=== PATIENT | male | born 1970 | race African-American/Black ===

== ENCOUNTER 2017-11-18 16:56 | Observation (INO) ==
[2017-11-18 17:58] LABS: Basophils % 0.5 % (0.0-0.8); Eosinophils # 0.3 10*3/uL (0.0-0.87); Eosinophils % 3.4 % (0.00-10.9); Hematocrit 36.5 VOL% (42.0-52.0); Hemoglobin 11.8 GM/DL (14.0-18.0); Immature Granulocytes % 0.3 %; Immature Granulocytes Absolute 0.02 #; Lymphocytes # 1.9 10*3/uL (1.4-4.0); Lymphocytes % 24.4 % (21.2-54.2); Mean Corpuscular HGB Conc 32.3 GM/DL (32-36); Mean Corpuscular Hemoglobin 28 PG (27-34); Mean Corpuscular Volume 87.3 FL (87-102); Mean Platelet Volume 10.7 FL (9.6-12.0); Monocytes # 1.1 10*3/uL (0.11-0.8); Monocytes % 13.9 % (1.7-12.7); Neutrophils # 4.5 10*3/uL (1.4-7.4); Neutrophils % 57.5 % (38.7-73.9); Platelet Count 342 T/CUMM (130-400); Red Blood Count 4.18 MC/CUMM (3.8-5.5); Red Cell Distribution Width 15.2 % (9.3-17.3); White Blood Count 7.8 T/CUMM (4-12)
[2017-11-18 18:02] LABS: INR 0.9
[2017-11-18 18:17] LABS: Alanine Aminotransferase 24 U/L (16-61); Albumin 3.3 G/DL (3.4-5.0); Alkaline Phosphatase 106 U/L (45-117); Aspartate Amino Transferase 19 U/L (0-37); Bilirubin,Total < 0.39 MG/DL (0.2-1.0); Blood Urea Nitrogen 15 MG/DL (7-18); Glucose 97 MG/DL (74-106); Osmolality,Calculated 281.3 MOS/KG (273-304); Potassium 3.9 MMOL/L (3.5-5.1); Sodium 141 MMOL/L (136-145); Total Protein 7.9 G/DL (6.4-8.3); Troponin I Only < 0.015 NG/ML (0.00-0.045)
[2017-11-18] MEDS ORDERED: MAGNESIUM SULF RIDER 2 GM in PREMIX 1 EACH IV STA (18:19)
[2017-11-18] MEDS ORDERED: MORPHINE 4 MG/1 ML VIAL IV STA (18:19)
[2017-11-18] MEDS ORDERED: NITROGLYCERIN 2% OINT 1 INCH/GM PACK TOP STA (18:19)
[2017-11-18] MEDS ORDERED: ONDANSETRON 4 MG/2 ML VIAL IV STA (18:19)
[2017-11-18] MEDS ORDERED: ALUM/MAG/SIMETH/LIDO VISC 1:1 30 ML BOTTLE PO STA (18:19)
[2017-11-18] MEDS ORDERED: ASPIRIN 325 MG TABLET PO STA (18:19)
[2017-11-18] MEDS ORDERED: MAGNESIUM SULF RIDER 4 GM in PREMIX 1 EACH IV PRN (18:44)
[2017-11-18] MEDS ORDERED: INSULIN REGULAR 100 UNIT/ML SUBCUT ONE (18:44)
[2017-11-18] MEDS ORDERED: POTASSIUM CHLORIDE 20 MEQ TABLET PO PRN ×2 (18:44)
[2017-11-18] MEDS ORDERED: MAGNESIUM SULF RIDER 2 GM in PREMIX 1 EACH IV PRN (18:44)
[2017-11-18] MEDS ORDERED: ACETAMINOPHEN 325 MG TABLET PO PRN (18:44)
[2017-11-18] MEDS ORDERED: ONDANSETRON 4 MG/2 ML VIAL IV PRN (18:44)
[2017-11-18] MEDS ORDERED: amLODIPine 5 MG TABLET PO SCH (19:00)
[2017-11-18] MEDS ORDERED: ENOXAPARIN 40 MG/0.4 ML SYRINGE SUBCUT SCH (21:00)
[2017-11-18] MEDS ORDERED: SIMVASTATIN 20 MG TABLET PO SCH (21:00)
[2017-11-18] MEDS ORDERED: CITALOPRAM 20 MG TABLET PO SCH (21:00)
[2017-11-18] MEDS ORDERED: traZODone 50 MG TABLET PO SCH (21:00)
[2017-11-18] MEDS: PANTOPRAZOLE 40 MG TABLET PO SCH (21:21)
[2017-11-18] MEDS: metFORMIN 500 MG TABLET PO SCH (21:22)
[2017-11-18] MEDS: SODIUM CHLORIDE 0.45% 1,000 ML IV SCH (21:22)
[2017-11-19 01:44] LABS: Basophils % 0.4 % (0.0-0.8); Eosinophils # 0.3 10*3/uL (0.0-0.87); Eosinophils % 4.4 % (0.00-10.9); Hematocrit 34.8 VOL% (42.0-52.0); Hemoglobin 11.3 GM/DL (14.0-18.0); Immature Granulocytes % 0.7 %; Immature Granulocytes Absolute 0.05 #; Lymphocytes # 2.3 10*3/uL (1.4-4.0); Lymphocytes % 30.4 % (21.2-54.2); Mean Corpuscular HGB Conc 32.5 GM/DL (32-36); Mean Corpuscular Hemoglobin 29 PG (27-34); Mean Corpuscular Volume 88.5 FL (87-102); Monocytes # 1.1 10*3/uL (0.11-0.8); Monocytes % 14.8 % (1.7-12.7); Neutrophils # 3.7 10*3/uL (1.4-7.4); Neutrophils % 49.3 % (38.7-73.9); Platelet Count 306 T/CUMM (130-400); Red Blood Count 3.93 MC/CUMM (3.8-5.5); Red Cell Distribution Width 15.1 % (9.3-17.3); White Blood Count 7.4 T/CUMM (4-12)
[2017-11-19 01:46] LABS: Risk Ratio 2.93; VLDL CHOLESTEROL 19.8 MG/DL
[2017-11-19 01:53] LABS: Calcium 8.2 MG/DL (8.5-10.1); Osmolality,Calculated 276.5 MOS/KG (273-304); Potassium 3.7 MMOL/L (3.5-5.1); Thyroid Stimulating Hormone 1.1 uIU/ml (0.358-3.74)
[2017-11-19] MEDS: NITROGLYCERIN 2% OINT 1 INCH/GM PACK TOP SCH ×3 (05:15→11:25)
[2017-11-19] MEDS: SODIUM CHLORIDE 0.45% 1,000 ML IV SCH (06:50)
[2017-11-19] MEDS ORDERED: GLIMEPIRIDE 2 MG TABLET PO SCH (09:00)
[2017-11-19] MEDS ORDERED: ASPIRIN EC 325 MG TABLET PO SCH (09:00)
[2017-11-19] MEDS ORDERED: SIMVASTATIN 20 MG TABLET PO SCH (09:53)
[2017-11-19 11:47] VITALS: BP 128/91
[2017-11-19] MEDS: PANTOPRAZOLE 40 MG TABLET PO SCH (12:12)
[2017-11-19] MEDS: metFORMIN 500 MG TABLET PO SCH (12:12)
== END 2017-11-19 12:57 | disposition home or self-care (01) ==
LOC: N.EDINP 16:56 → N.ED 16:56 → N.TELES 19:37
PROVIDERS: ADMIT Internal Medicine; ATTEND Internal Medicine

== ENCOUNTER 2019-11-12 17:35 | Observation (INO) ==
[2019-11-12] MEDS ORDERED: ASPIRIN 325 MG TABLET PO STA (18:16)
[2019-11-12 18:31] LABS: PT Patient Result 10.3 SECS (9.8-11.9)
[2019-11-12 18:41] LABS: Basophils % 0.5 % (0.0-0.8); Eosinophils # 0.1 10*3/uL (0.0-0.87); Eosinophils % 1.1 % (0.00-10.9); Hematocrit 27.4 VOL% (42.0-52.0); Immature Granulocytes % 0.5 %; Immature Granulocytes Absolute 0.03 #; Lymphocytes # 1.2 10*3/uL (1.4-4.0); Lymphocytes % 17.7 % (21.2-54.2); Mean Corpuscular HGB Conc 29.2 GM/DL (32-36); Mean Corpuscular Volume 78.5 FL (87-102); Mean Platelet Volume 9.1 FL (9.6-12.0); Monocytes % 16.4 % (1.7-12.7); Neutrophils % 63.8 % (38.7-73.9); Platelet Count 374 T/CUMM (130-400); Red Blood Count 3.49 MC/CUMM (3.8-5.5); Red Cell Distribution Width 18.4 % (9.3-17.3); White Blood Count 6.7 T/CUMM (4-12)
[2019-11-12 18:48] LABS: Anisocytosis 1+; Hypochromasia 1+; Lymphocytes 20 % (20-55); Segmented Neutrophils 65 % (50-85); Total Cells Counted 100
[2019-11-12 18:49] LABS: Platelet Estimate Adequate; Polychromasia 1+
[2019-11-12 19:09] LABS: Alanine Aminotransferase 25 U/L (16-61); Albumin 3.4 G/DL (3.4-5.0); Alkaline Phosphatase 101 U/L (45-117); Aspartate Amino Transferase 28 U/L (0-37); Bilirubin,Total < 0.39 MG/DL (0.2-1.0); Blood Urea Nitrogen 15 MG/DL (7-18); Calcium 8.1 MG/DL (8.5-10.1); Estimated Glom Filtration Rate 156 ML/MIN; Glucose 144 MG/DL (74-106); Osmolality,Calculated 276.8 MOS/KG (273-304); Total Protein 7.7 G/DL (6.4-8.3)
[2019-11-12] MEDS ORDERED: ONDANSETRON 4 MG/2 ML VIAL IV ONE (19:19)
[2019-11-12] MEDS ORDERED: NITROGLYCERIN SL 0.4 MG TABLET SL STA (19:19)
[2019-11-12] MEDS ORDERED: MORPHINE 4 MG/1 ML VIAL IV STA (19:19)
[2019-11-12] MEDS ORDERED: MORPHINE 4 MG/1 ML VIAL IV PRN (22:15)
[2019-11-12] MEDS ORDERED: MAGNESIUM SULF RIDER 4 GM in PREMIX 1 EACH IV PRN (22:15)
[2019-11-12] MEDS ORDERED: DOCUSATE SODIUM 100 MG CAPSULE PO PRN (22:15)
[2019-11-12] MEDS ORDERED: NITROGLYCERIN SL 0.4 MG TABLET SL PRN (22:15)
[2019-11-12] MEDS ORDERED: MAGNESIUM SULF RIDER 2 GM in PREMIX 1 EACH IV PRN (22:15)
[2019-11-12] MEDS ORDERED: SODIUM CHLORIDE 0.9% 1,000 ML IV PRN (22:15)
[2019-11-12] MEDS ORDERED: GLUCAGON 1 MG VIAL IM PRN (22:15)
[2019-11-12] MEDS ORDERED: ONDANSETRON 4 MG/2 ML VIAL IV PRN (22:15)
[2019-11-12] MEDS ORDERED: hydrALAZINE 20 MG/1 ML VIAL IV PRN (22:15)
[2019-11-12] MEDS ORDERED: DEXTROSE 10% 250 ML BAG IV PRN (22:15)
[2019-11-13] MEDS: SIMVASTATIN 40 MG TABLET PO SCH ×2 (00:10→21:42)
[2019-11-13] MEDS: CITALOPRAM 20 MG TABLET PO SCH ×2 (00:10→21:42)
[2019-11-13] MEDS: ENOXAPARIN 40 MG/0.4 ML SYRINGE SUBCUT SCH ×2 (00:10→21:43)
[2019-11-13] MEDS: traZODone 50 MG TABLET PO SCH ×2 (00:10→21:43)
[2019-11-13 02:00] LABS: Basophils % 0.4 % (0.0-0.8); Eosinophils # 0.1 10*3/uL (0.0-0.87); Eosinophils % 1.1 % (0.00-10.9); Hematocrit 21.6 VOL% (42.0-52.0); Immature Granulocytes % 0.3 %; Immature Granulocytes Absolute 0.02 #; Lymphocytes # 1.9 10*3/uL (1.4-4.0); Lymphocytes % 25.3 % (21.2-54.2); Mean Corpuscular HGB Conc 27.8 GM/DL (32-36); Mean Corpuscular Volume 80.6 FL (87-102); Mean Platelet Volume 9.1 FL (9.6-12.0); Monocytes % 16.5 % (1.7-12.7); Neutrophils % 56.4 % (38.7-73.9); Platelet Count 448 T/CUMM (130-400); Red Blood Count 2.68 MC/CUMM (3.8-5.5); Red Cell Distribution Width 18.1 % (9.3-17.3); White Blood Count 7.5 T/CUMM (4-12)
[2019-11-13 02:20] LABS: % Iron Saturation 5.1 % (18-50); Calcium 8.4 MG/DL (8.5-10.1); Ferritin 8.7 ng/ml (26-388); Risk Ratio 2.78; Thyroid Stimulating Hormone 0.91 uIU/ml (0.358-3.74); VLDL CHOLESTEROL 17.2 MG/DL
[2019-11-13 02:42] LABS: Folate 12.1 NG/ML (5.4-24.0); Vitamin B12 292 PG/ML (211-911)
[2019-11-13] MEDS ORDERED: SODIUM CHLORIDE 0.9% 1,000 ML IV PRN (02:52)
[2019-11-13 03:06] LABS: Sedimentation Rate-Westergren 95 MM/HR (0-20)
[2019-11-13 03:33] LABS: Anisocytosis 2+; Lymphocytes 20 % (20-55); Macrocytosis 2+; Microcytosis 1+; Platelet Estimate Increased; Segmented Neutrophils 60 % (50-85); Total Cells Counted 100
[2019-11-13 03:34] LABS: Acanthocytes Few; Hypochromasia 2+; Ovalocytes 1+; Polychromasia Few; Sickle Cells Few; Target Cells 1+
[2019-11-13] MEDS: POTASSIUM CHLORIDE 20 MEQ TABLET PO PRN ×2 (03:45→06:52)
[2019-11-13] MEDS: FLUTICASONE 50 MCG NASAL SPRAY 16 GM BOTTLE BOTH NARES SCH (09:12)
[2019-11-13] MEDS: amLODIPine 10 MG TABLET PO SCH (09:12)
[2019-11-13] MEDS: GLIMEPIRIDE 2 MG TABLET PO SCH (09:12)
[2019-11-13] MEDS: INSULIN LISPRO 100 UNIT/ML SUBCUT SCH ×4 (09:12→21:02)
[2019-11-13] MEDS: PANTOPRAZOLE 40 MG TABLET PO SCH (09:12)
[2019-11-13 10:32] LABS: Hematocrit 35.8 VOL% (42.0-52.0)
[2019-11-13 10:34] LABS: Hemoglobin 10.5 GM/DL (14.0-18.0)
[2019-11-13 10:37] LABS: Hemoglobin A1 (Alkaline) 98.3 % (96.5-98.5); Hemoglobin A2 (Alkaline) 1.7 % (1.5-3.5)
[2019-11-14 06:29] LABS: Calcium 8.9 MG/DL (8.5-10.1)
[2019-11-14 06:31] LABS: Basophils % 0.5 % (0.0-0.8); Eosinophils # 0.1 10*3/uL (0.0-0.87); Eosinophils % 2.5 % (0.00-10.9); Hematocrit 36.1 VOL% (42.0-52.0); Hemoglobin 10.7 GM/DL (14.0-18.0); Immature Granulocytes % 0.2 %; Immature Granulocytes Absolute 0.01 #; Lymphocytes # 1.4 10*3/uL (1.4-4.0); Mean Corpuscular HGB Conc 29.6 GM/DL (32-36); Mean Platelet Volume 9.5 FL (9.6-12.0); Monocytes % 16.1 % (1.7-12.7); Neutrophils % 55.7 % (38.7-73.9); Platelet Count 426 T/CUMM (130-400); Red Blood Count 4.51 MC/CUMM (3.8-5.5); Red Cell Distribution Width 17.8 % (9.3-17.3); White Blood Count 5.6 T/CUMM (4-12)
[2019-11-14 06:49] LABS: Anisocytosis 1+; Eosinophils 2 % (0-10); Hypochromasia 2+; Lymphocytes 24 % (20-55); Microcytosis 1+; Polychromasia Slight; Segmented Neutrophils 60 % (50-85); Total Cells Counted 100
[2019-11-14 06:50] LABS: Platelet Estimate Increased
[2019-11-14] MEDS ORDERED: LACTATED RINGERS 1,000 ML IV SCH (08:00)
[2019-11-14] MEDS: INSULIN LISPRO 100 UNIT/ML SUBCUT SCH ×4 (08:01→20:49)
[2019-11-14] MEDS ORDERED: LIDOCAINE 2% 5 ML VIAL ONE (09:00)
[2019-11-14] MEDS ORDERED: propofoL 200 MG/20 ML VIAL IV ONE (09:00)
[2019-11-14] MEDS ORDERED: BISACODYL 5 MG TABLET PO ONE (12:00)
[2019-11-14] MEDS: GLIMEPIRIDE 2 MG TABLET PO SCH (14:09)
[2019-11-14] MEDS: POTASSIUM CHLORIDE 20 MEQ TABLET PO PRN ×2 (14:11→16:17)
[2019-11-14] MEDS: PANTOPRAZOLE 40 MG TABLET PO SCH (14:12)
[2019-11-14] MEDS: amLODIPine 10 MG TABLET PO SCH (14:12)
[2019-11-14] MEDS: FLUTICASONE 50 MCG NASAL SPRAY 16 GM BOTTLE BOTH NARES SCH (14:14)
[2019-11-14] MEDS ORDERED: POLYETHYLENE GLYCOL POWDER 255 GM BOTTLE PO ONE (18:00)
[2019-11-14] MEDS: traZODone 50 MG TABLET PO SCH (21:10)
[2019-11-14] MEDS: CITALOPRAM 20 MG TABLET PO SCH (21:11)
[2019-11-14] MEDS: SIMVASTATIN 40 MG TABLET PO SCH (21:11)
[2019-11-14] MEDS: ENOXAPARIN 40 MG/0.4 ML SYRINGE SUBCUT SCH (21:12)
[2019-11-15 05:35] LABS: PT Patient Result 10.9 SECS (9.8-11.9)
[2019-11-15] MEDS ORDERED: MAGNESIUM CITRATE 300 ML BOTTLE PO ONE (06:00)
[2019-11-15] MEDS: INSULIN LISPRO 100 UNIT/ML SUBCUT SCH ×2 (07:29→11:42)
[2019-11-15] MEDS ORDERED: LACTATED RINGERS 1,000 ML IV SCH (08:00)
[2019-11-15] MEDS ORDERED: LIDOCAINE 2% 5 ML VIAL ONE (09:00)
[2019-11-15] MEDS ORDERED: propofoL 200 MG/20 ML VIAL IV ONE (09:00)
[2019-11-15 12:54] VITALS: BP 102/83
[2019-11-15] MEDS: PANTOPRAZOLE 40 MG TABLET PO SCH (13:00)
[2019-11-15] MEDS: amLODIPine 10 MG TABLET PO SCH (13:00)
[2019-11-15] MEDS: FLUTICASONE 50 MCG NASAL SPRAY 16 GM BOTTLE BOTH NARES SCH (13:00)
[2019-11-15] MEDS: GLIMEPIRIDE 2 MG TABLET PO SCH (13:00)
== END 2019-11-15 15:44 | disposition home or self-care (01) ==
LOC: N.EDINP 17:35 → N.ED 17:35 → N.TELES 21:12
PROVIDERS: ADMIT Emergency Medicine; ATTEND Emergency Medicine